=== PATIENT | female | born 1995 | race African-American/Black ===

== ENCOUNTER 2020-01-16 13:48 | Emergency (ER) | payer MEDICAID, OTHER ==
[~2020-01-16] VITALS: Ht 160 cm; Wt 90.0 kg
[~2020-01-16 13:48] MED LIST: FERR1TAB25 PO; FOLI0.8T PO; PREN-107 PO
[2020-01-16] MEDS ORDERED: ONDANSETRON HCL 4MG/2ML INJ IV STA ×2 (14:52→16:01)
[2020-01-16] MEDS ORDERED: MORPHINE SULFATE 4 MG/ML CPJ (NOT FOR IM USE) IV STA ×2 (14:52→16:01)
[2020-01-16] MEDS ORDERED: FAMOTIDINE 20MG/2ML VIAL IV STA (14:52)
[2020-01-16] MEDS ORDERED: SODIUM CHLORIDE 0.9% 1,000 ML IV ONE ×2 (15:00→17:30)
[2020-01-16 15:23] LABS: CLARITY URINE CLEAR (CLEAR); COLOR URINE YELLOW (YELLOW); KETONES URINE TRACE (NEGATIVE); LEUKOCYTE ESTERASE URINE TRACE (NEGATIVE); NITRITE URINE NEGATIVE (NEGATIVE); OCCULT BLOOD URINE NEGATIVE (NEGATIVE); PROTEIN URINE NEGATIVE (NEGATIVE); SPECIFIC GRAVITY URINE 1.019 (1.005-1.030); UROBILINOGEN URINE 0.2 E.U./dL (0.2-1.0)
[2020-01-16 15:39] LABS: EOSINOPHILS % 1.2 % (0.0-5.0); HEMOGLOBIN. 14.5 g/dL (12.0-16.0); LYMPHOCYTES % 43.8 % (20.0-50.0); MEAN CORPUSCULAR HEMOGLOBIN 29.3 pg (28.0-32.0); MEAN CORPUSCULAR VOLUME 87.2 fL (81.0-99.0); MEAN PLATELET VOLUME 8.5 fl (7.4-10.4); MONOCYTES % 5.2 % (2.0-8.0); NEUTROPHILS % 48.8 % (40.0-76.0); PLATELET 262 x1000/uL (130-400); RED BLOOD CELL COUNT 4.94 mill/uL (4.2-5.4); RED CELL DISTRIBUTION WIDTH 13.3 % (11.6-14.6)
[2020-01-16 15:46] LABS: CHLORIDE 110 mEq/L (98-107)
[2020-01-16 15:52] LABS: HCG SCREEN NEGATIVE
[2020-01-16] MEDS ORDERED: KETOROLAC 30MG/ML VIAL IV ONE (17:30)
[2020-01-16 18:15] VITALS: BP 109/74
== END 2020-01-16 19:24 | disposition home or self-care (01) ==
LOC: ER 13:48
DX: R10.9 Unspecified abdominal pain (principal); F17.200 Nicotine dependence, unspecified, uncomplicated; Z90.49 Acquired absence of other specified parts of digestive tract
CPT/HCPCS: 36415; 74177; 80053; 81003; 81025; 83690; 84703; 85025; 85610; 96361; 96374; 96375; 96376; 99285; J1885; J2270; J2405; J3490; J7030